=== PATIENT | male | born 1990 | race Asian ===

== ENCOUNTER → 2020-03-28 09:04 | Outpatient (CLI) | payer OTHER, SELFPAY ==
[2020-03-30 17:22] LABS: COVID19 Sendout Not Detected (Not Detect)
== END ==
PROVIDERS: Visit Provider Nurse Practitioner
DX: Z11.59 Encounter for screening for other viral diseases (principal)
CPT/HCPCS: 87635

== ENCOUNTER → 2020-05-06 09:01 | Outpatient (CLI) | payer OTHER, SELFPAY ==
[2020-05-06 22:37] LABS: COVID19 Sendout Not Detected (Not Detect)
== END ==
PROVIDERS: Visit Provider Physician Assistant
DX: Z11.59 Encounter for screening for other viral diseases (principal)
CPT/HCPCS: 87635